=== PATIENT | male | born 1995 | race Caucasian/White ===

== ENCOUNTER 2017-06-04 21:24 | Emergency (ER) | payer OTHER ==
[~2017-06-04] VITALS: Ht 177.8 cm; Wt 85.5 kg
[2017-06-04 21:33] VITALS: TEMP 37.2; Ht 177.8 cm; Wt 85.5 kg
--- NOTE | 2017-06-04 22:32 | DIAGNOSTIC IMAGING REPORT ---
RIGHT ANKLE 3 VIEWS CLINICAL HISTORY: Right ankle injury. FINDINGS: 3 views of the right ankle are obtained. No prior studies are available for comparison at the time of dictation. The skeletal structures are well mineralized. A nondistracted fracture of the lateral malleolus is suggested. This is best seen on the frontal view. No additional findings are concerning for acute fracture. The ankle mortise appears intact. There is a joint effusion, and soft tissue swelling is present around the ankle which is greatest laterally. IMPRESSION: 1. Suspect a subtle nonobstructed fracture of the lateral malleolus. There is associated joint effusion and soft tissue swelling. 2. No additional findings are concerning for acute fracture. Electronically signed by: Toby Che M.D. 06/04/2017 10:31 PM Dictated Date/Time: 06/04/2017 10:29 PM
--- NOTE | 2017-06-04 22:55 | EMERGENCY ROOM VISIT NOTE ---
ED Visit Note First contact with patient: 21:43 CHIEF COMPLAINT: Ankle pain HISTORY OF PRESENT ILLNESS: This 22-year-old male patient presents to the emergency department ambulatory after sustaining an injury to the right ankle and foot with a twisting, inversion motion prior to arrival. Patient states that he was playing basketball and landed onto the right ankle, inverting the ankle. He states that he heard a pop when this occurred. The patient complains of pain along the outside of the ankle. The patient denies pain of the foot. The patient rates the pain as sharp and 8/10. The patient is able to bear weight on the foot. Constant pain, worse with movement, weight bearing , and the dependent position. No knee pain, the patient is able to move their toes. No numbness or weakness of the foot, no laceration. The patient has not had a previous fracture to this ankle. The patient has taken no medication for the pain. The patient denies any other injury. REVIEW OF SYSTEMS: A 6 system review of systems was completed with positives and pertinent negatives listed in the HPI. ALLERGIES: No known drug allergies MEDICATIONS: No chronic medications PMH: No significant past medical history. SOCIAL HISTORY: The patient is a [employer] student and lives with roommates. He admits to smoking and occasional alcohol use. PHYSICAL EXAM: Vital Signs: Reviewed Nurse's notes, vital signs stable. GENERAL : This is a 22-year-old male, no acute distress, but appears in pain, well- developed, well-nourished. MENTAL STATUS: Alert, oriented to person place and time, and cooperative. MUSCULOSKELETAL: The right ankle is swollen and tender over the lateral malleolus, but the skin is intact and there is no ligamentous instability. There is no fifth metatarsal tenderness. There is no tenderness over the rest of the foot. There is no calf or tibia/fibular tenderness. There is no visual deformity. The foot and toes are warm and well-perfused. Dorsalis pedis pulse 2+. Sensation to pain and light touch is intact. Capillary refill less than 2 seconds. RADIOGRAPHIC FINDING: RIGHT ANKLE 3 VIEWS CLINICAL HISTORY: Right ankle injury. FINDINGS: 3 views of the right ankle are obtained. No prior studies are available for comparison at the time of dictation. The skeletal structures are well mineralized. A nondistracted fracture of the lateral malleolus is suggested. This is best seen on the frontal view. No additional findings are concerning for acute fracture. The ankle mortise appears intact. There is a joint effusion, and soft tissue swelling is present around the ankle which is greatest laterally. IMPRESSION: 1. Suspect a subtle nonobstructed fracture of the lateral malleolus. There is associated joint effusion and soft tissue swelling. 2. No additional findings are concerning for acute fracture. EMERGENCY DEPARTMENT COURSE: I examined the patient. X-rays of the right ankle were reviewed by myself and read by radiology and reveal a suspected fracture of the distal fibula. Ortho-Glass posterior leg splint was applied to the ankle under my direction and the position was satisfactory. Neurovascular status was rechecked and intact. The patient was instructed on the use of crutches. He was given information for orthopedic follow-up. Conservative measures were discussed with the patient. He verbalized understanding. The patient was discharged home in good condition. Blood pressure screening: Patient was found to have normal blood pressure on screening and does not require follow-up. Medication reconciliation: I attest that I have personally reviewed the patient 's current medication list. DIAGNOSIS: Distal fibula fracture Current/Historical Medications No Active Prescriptions or Reported Meds Allergies Coded Allergies: No Known Allergies (Unverified , 06/04/17) Vital Signs Date Time Temp Pulse Resp B/P (MAP) Pulse Ox O2 Delivery O2 Flow Rate FiO2 06/04/17 23:00 99 18 137/78 99 06/04/17 21:33 37.2 87 16 152/86 97 Room Air Departure Information Impression Primary Impression: Fracture of distal end of right fibula Dispostion Home / Self-Care Condition GOOD Prescriptions No Active Prescriptions or Reported Meds Referrals [facility] (PCP) Ghassan Rodrigues M.D. Patient Instructions My [facility] Additional Instructions You have been treated in the Emergency Department for an Ankle fracture. For pain control, you can use the following zafp-dzw-xkzhrip medicines (if >12 yo): - Regular strength (325mg/tab) Tylenol (acetaminophen) 2 tabs every 4-6 hours as needed. Do not exceed 12 tablets in a 24 hour period. Avoid taking more than 4 grams (4000 mg) of Tylenol per day. This includes any other sources of acetaminophen you may take on a regular basis. - Regular strength (200 mg/tab) Advil (ibuprofen) 1-2 tabs every 4-6 hours as needed. Do not exceed a dose of 3200 mg per day. If this is a recent injury (<24 hrs), ice can be applied to the area of pain for the first 3 days to help decrease pain and inflammation. You have been provided the number for an Orthopaedic Surgeon. You should call this number as soon as possible to establish a follow-up visit from today's Emergency Department visit. Keep the ankle brace/splint in place until cleared by Orthopedics. Use the crutches you have been provided to keep ALL weight off of the ankle until weight bearing is tolerable. Return to the Emergency Department if your current symptoms worsen despite treatment course outlined above, or if you develop any of the following symptoms : intractable pain despite aforementioned treatment course or new onset of numbness or tingling of the foot. Problem Qualifiers Primary Impression: Fracture of distal end of right fibula Encounter type: initial encounter Fracture type: closed Fracture morphology : other fracture Qualified Codes: S82.831A - Other fracture of upper and lower end of right fibula, initial encounter for closed fracture
[2017-06-04 23:00] VITALS: BP 137/78; PULSE 99; O2SAT 99
== END 2017-06-04 23:01 | disposition home or self-care (01) ==
LOC: C.EDB 21:25 → C.EDD 23:01
DX: S89.301A Unspecified physeal fracture of lower end of right fibula, initial encounter for closed fracture (principal); X58.XXXA Exposure to other specified factors, initial encounter